=== PATIENT | female | born 1985 | race Asian ===

== ENCOUNTER 2022-08-09 17:08 | Emergency (ER) | payer OTHER ==
[~2022-08-09] VITALS: Ht 165.1 cm; Wt 64.9 kg
[2022-08-09 17:15] VITALS: BP 126/79; TEMP 99
== END 2022-08-09 18:34 | disposition home or self-care (01) ==
LOC: ED 17:08
DX: S90.31XA Contusion of right foot, initial encounter (principal); W17.89XA Other fall from one level to another, initial encounter; Y93.39 Activity, other involving climbing, rappelling and jumping off; Y92.143 Cell of prison as the place of occurrence of the external cause
CPT/HCPCS: 80307; 81025; 96372; 99283; J1885